=== PATIENT | female | born 1990 | race American Indian/Alaskan Native ===

== ENCOUNTER 2020-10-16 04:43 | Inpatient (IN) | payer OTHER ==
[2020-10-16] MEDS ORDERED: fentaNYL 100 MCG/2 ML INJ IV ONE (04:50)
[2020-10-16] MEDS ORDERED: fentaNYL 100 MCG/2 ML INJ ONE (04:51)
[2020-10-16] MEDS ORDERED: LACTATED RINGERS 1,000 ML ONE (05:07)
[2020-10-16] MEDS ORDERED: MINERAL OIL 30 ML ORAL LIQD ONE (05:35)
[2020-10-16 05:57] LABS: Basophils % (Auto) 0.2 % (0.0-1.8); Eosinophils # (Auto) 0.1 K/mm3 (0.0-0.4); Hematocrit 41.5 % (30.3-42.9); Hemoglobin 13.8 gm/dl (10.1-14.3); Lymphocytes # (Auto) 3.8 K/mm3 (1.2-5.4); Lymphocytes % (Auto) 40.4 % (13.4-35.0); Mean Corpuscular HGB Conc 33 % (30-34); Mean Corpuscular Volume 78 fl (79-97); Monocytes # (Auto) 0.7 K/mm3 (0.0-0.8); Monocytes % (Auto) 7.9 % (0.0-7.3); Red Blood Count 5.31 M/mm3 (3.65-5.03); Red Cell Distribution Width 15.9 % (13.2-15.2)
[2020-10-16 06:06] LABS: Platelet Count 129 K/mm3 (140-440)
--- NOTE | 2020-10-16 06:21 | History and Physical Report ---
History of Present Illness Date of examination: 10/16/20 Date of admission: 10/16/20 04:43 Chief complaint: Intense labor pains and "my water broke around 02:00 this morning". History of present illness: Transfer in to care at 31 3/7 weeks to [facility] from [place]. course complicated by Vitamin D deficiency (on PO Vit D supplements). Of note, patient was started on LDA by previous provider for history of previous miscarriages and continued taking LDA after transfer of care. She is also Varicella non-immune. Past History Past Medical History: migraines, other (chronic sinusitis) Past Surgical History: D&C Family/Genetic History: diabetes (maternal grandmother), hypertension (maternal grandmother), stroke (paternal grandmother) Social history: no significant social history, - Obstetrical History Expected Date of Delivery: 10/14/20 Actual Gestation: 40 Week(s) 2 Day(s) : 4 Para: 1 Hx # Term Pregnancies: 1 Number of Pregnancies: 0 Spontaneous Abortions: 2 Number of Living Children: 1 #1 Gender: Female year: Birthweight: 3.827 kg Method of Delivery: Vaginal Gestational age at delivery: 40 Complications: perineal laceration (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) Medications and Allergies Allergies Allergy/AdvReac Type Severity Reaction Status Date / Time No Known Allergies Allergy Verified 10/16/20 04:52 Home Medications Medication Instructions Recorded Confirmed Last Taken Type Vit-Fe Fumar-FA [ 1 tab PO DAILY 10/16/20 10/16/20 Unknown History Vitamin] Review of Systems All systems: negative - Vital Signs Vital signs: Vital Signs Temp Pulse Resp BP 98.3 F 60 18 151/90 10/16/20 04:43 10/16/20 04:43 10/16/20 04:43 10/16/20 04:43 Temp Pulse Resp BP Pulse Ox 98.3 F 73 18 133/87 98 10/16/20 04:43 10/16/20 06:12 10/16/20 04:43 10/16/20 06:12 10/16/20 06:10 - Physical Exam Breasts: Positive: normal Cardiovascular: Regular rate Lungs: Positive: Clear to auscultation, Normal air movement Abdomen: Positive: normal appearance, soft Genitourinary (Female): Positive: normal external genitalia, normal perenium, other (small dimple noted to posterior introitus where pt reports fistula) Vagina: Positive: normal moisture Uterus: Positive: enlarged Anus/Rectum: Positive: normal perianal skin Extremities: Positive: normal - Obstetrical FHR: category 1 Uterine Contraction Monitor Mode: External Cervical Dilatation: 9 (Leaking a small amount of clear fluid on exam.) Cervical Effacement Percentage: 100 station: +1 Uterine Contraction Frequency (min): 2-3 Uterine Contraction Duration: 60-90 Uterine Contraction Pattern: Regular Uterine Tone Measurement Phase: Resting Uterine Contraction Intensity: Moderate Results Result Diagrams: 10/16/20 05:00 Abnormal lab results 10/16/20 Range/Units 05:00 RBC 5.31 H (3.65-5.03) M/mm3 MCV 78 L (79-97) fl MCH 26 L (28-32) pg RDW 15.9 H (13.2-15.2) % Plt Count 129 L (140-440) K/mm3 Lymph % (Auto) 40.4 H (13.4-35.0) % Alfalfa % (Auto) 7.9 H (0.0-7.3) % All other labs normal. Assessment and Plan A: IUP @ 40 3/7 weeks Category I tracing Active Labor SROM GBS Negative Varicella Non-Immune P: Admit to L&D per routine orders Expectant management Anticipate Needs Varicella vaccine
[2020-10-16] MEDS ORDERED: TERBUTALINE 1 MG/1 ML INJ SUB-Q PRN (06:52)
[2020-10-16] MEDS ORDERED: ePHEDrine SULFATE 50 MG/1 ML INJ IV PRN (06:52)
[2020-10-16] MEDS ORDERED: LIDOCAINE (2%) 20 MG/1 ML VIAL 20 ML MDV INFILTRATI NR (06:52)
[2020-10-16] MEDS ORDERED: OXYTOCIN DRIP 30 UNITS/500 ML BAG IV SCH ×2 (07:00)
[2020-10-16] MEDS ORDERED: LACTATED RINGERS 1,000 ML IV SCH (07:00)
--- NOTE | 2020-10-16 07:52 | Procedure Note ---
OB Delivery Note - Delivery Date of Delivery: 10/16/20 (0717) Surgeon: KATRINA WHITFIELD Estimated blood loss: 200cc - Vaginal Delivery presentation: vertex Delivery position: OA Intrapartum events: none Delivery induction: none Delivery monitor: external FHT, external uterine Route of delivery: Delivery placenta: spontaneous Delivery cord: 3 umbilical vessels Delivery laceration: 1st degree Delivery repair: vicryl Anesthesia: local Delivery comments: of a live 8'7 female infant over a 1st degree perineal laceration under IV pain control with Apgars of 9 and 9 at 0717 on 10/16/2020. Infant directly to maternal abd/chest, skin to skin contact. Spontaneous delivery of placenta complete and intact with Doty side presenting at 0725. Fundus is firm and midline located 4 below the U. Lochia is scant. Delayed cord clamping and cutting; Cord cut by the Father of the Baby. Cord blood collected. Perineal laceration repaired with 2-[address]-1 under local 2% Lidocaine. - A at 1 minute: 9 at 5 minutes: 9 Infant Gender: Female (8'7)
[2020-10-16] MEDS ORDERED: diphenhydrAMINE 25 MG CAP PO PRN (08:00)
[2020-10-16] MEDS ORDERED: WITCH HAZEL/ GLYCERIN PAD TP PRN (08:00)
[2020-10-16] MEDS ORDERED: BENZOCAINE/MENTHOL 20/0.5% TOP SPRAY 56 GM TP PRN (08:00)
[2020-10-16] MEDS ORDERED: HYDROcodone/ACETAMINOPHEN 5-325 MG TAB PO PRN (08:30)
[2020-10-16] MEDS ORDERED: LANOLIN/ZINC/DIMETHICONE (LANSINOH) 7 GM TP PRN (08:30)
[2020-10-16] MEDS: IBUPROFEN 600 MG TAB PO SCH ×3 (12:19→20:05)
[2020-10-16] MEDS: PRENATAL VIT27-FE FUMARATE-FOLIC ACID VIT TAB PO SCH (12:20)
[2020-10-16 16:01] LABS: Hematocrit 36.7 % (30.3-42.9); Hemoglobin 11.9 gm/dl (10.1-14.3)
[2020-10-16] MEDS ORDERED: MINERAL OIL 30 ML ORAL LIQD PO PRN (22:00)
[2020-10-17] MEDS: IBUPROFEN 600 MG TAB PO SCH ×2 (01:50→10:07)
[2020-10-17] MEDS: PRENATAL VIT27-FE FUMARATE-FOLIC ACID VIT TAB PO SCH (10:07)
[2020-10-17 13:17] LABS: Basophils % (Auto) 0.2 % (0.0-1.8); Eosinophils # (Auto) 0.1 K/mm3 (0.0-0.4); Eosinophils % (Auto) 0.7 % (0.0-4.3); Hematocrit 36.7 % (30.3-42.9); Hemoglobin 12.2 gm/dl (10.1-14.3); Lymphocytes # (Auto) 2.6 K/mm3 (1.2-5.4); Lymphocytes % (Auto) 27.3 % (13.4-35.0); Mean Corpuscular HGB Conc 33 % (30-34); Mean Corpuscular Volume 79 fl (79-97); Monocytes # (Auto) 0.8 K/mm3 (0.0-0.8); Monocytes % (Auto) 8.2 % (0.0-7.3); Platelet Count 109 K/mm3 (140-440); Red Blood Count 4.65 M/mm3 (3.65-5.03); Red Cell Distribution Width 15.9 % (13.2-15.2)
[2020-10-17 13:53] LABS: Alanine Aminotransferase 17 units/L (7-56); Albumin 3.4 g/dL (3.9-5); Blood Urea Nitrogen 8 mg/dL (7-17); Calcium 9.2 mg/dL (8.4-10.2); Hemolysis Index 8
[2020-10-17 13:56] LABS: BUN/Creatinine Ratio 16
--- NOTE | 2020-10-17 15:08 | Progress Note ---
Assessment and Plan PPD#1 doing well with thrombocytopenia, asymptomatic and pt desires to go home 1. PIH precaution given 2. Pt to follow up in clinic in 1wk and to call office if she has headache 3. Routine care instruction and all questions encouraged and answered Subjective Date of service: 10/17/20 Principal diagnosis: PPD#1 with thrombocytopenia, asymptomatic Interval history: Pt is breast feeding, denies pelvic pain and same controlled with motrin med and vag bleed less than a period. pt wants to go home. Tolerates diet well and voiding without difficulty. Pt denies headache Objective - Constitutional Vitals: Vital Signs - 12hr 10/17/20 08:33 Temperature 97.6 F Pulse Rate 71 Respiratory 18 Rate Blood Pressure 132/86 O2 Sat by Pulse 96 Oximetry General appearance: Present: no acute distress - Respiratory Respiratory effort: normal - Breasts Breasts: normal - Cardiovascular Rhythm: regular Extremities: no ischemia - Gastrointestinal General gastrointestinal: Present: non-tender - Genitourinary Female genitourinary: other (Uterine fundus firm and 4cm below the umbilicus; right labia with mild swelling, non-tender and sutures intact to laceration repaired at delivery) - Integumentary Integumentary: warm, dry - Musculoskeletal Musculoskeletal: strength equal bilaterally - Neurologic Neurologic: CNII-XII intact - Psychiatric Psychiatric: appropriate mood/affect - Labs CBC & Chem 7: 10/17/20 12:58 10/17/20 12:58 Labs: Abnormal lab results 10/17/20 10/17/20 Range/Units 12:58 12:58 MCH 26 L (28-32) pg RDW 15.9 H (13.2-15.2) % Plt Count 109 L (140-440) K/mm3 [place] % (Auto) 8.2 H (0.0-7.3) % Sodium 135 L (137-145) mmol/L Creatinine 0.5 L (0.6-1.2) mg/dL Alkaline Phosphatase 145 H (35-129) units/L Total Protein 5.9 L (6.3-8.2) g/dL Albumin 3.4 L (3.9-5) g/dL Medications & Allergies - Medications Allergies/Adverse Reactions: Allergies No Known Allergies Allergy (Verified 10/16/20 04:52) Home Medications: Home Medications Medication Instructions Recorded Confirmed Last Taken Type Ibuprofen [Motrin 600 MG tab] 600 mg PO Q6H 21 Days #40 tablet 10/17/20 Unknown Rx Active Medications: Generic Name Dose Route Start Last Admin Trade Name Freq PRN Reason Stop Dose Admin Hydrocodone Bitart/Acetaminophen 2 each 10/16/20 08:30 Hydrocodone/Acetaminophen 5-325 Mg Tab PO Q6H PRN Pain, Moderate (4-6) Benzocaine/Menthol 1 spray 10/16/20 08:00 10/16/20 12:19 Benzocaine/Menthol 20/0.5% Top [place] 56 Gm TP 1 spray PRN PRN Administration Episiotomy Pain Bisacodyl 10 mg 10/16/20 10:00 Bisacodyl 10 Mg Rect Supp NC BID PRN Constipation Diphenhydramine HCl 25 mg 10/16/20 08:00 Diphenhydramine 25 Mg Cap PO Q6H PRN Itching Ibuprofen 600 mg 10/16/20 08:00 10/17/20 10:07 Ibuprofen 600 Mg Tab PO 600 mg Q6H JUSTINA Administration Multi-Ingredient Ointment 1 applic 10/16/20 08:30 10/16/20 12:19 Lanolin/Zinc/Dimethicone (L[place]) 7 Gm TP 1 applic PRN PRN Administration Sore Nipples Multivitamins/Iron/Calcium 1 each 10/16/20 10:00 10/17/20 10:07 [id number]-Sb Fumarate-Folic Acid Vit Tab PO 1 each QDAY JUSTINA Administration Sodium Chloride 10 ml 10/16/20 08:00 Sodium Chloride 0.9% 10 Ml Flush Syringe IV PRN PRN flush [place]/Glycerin 1 each 10/16/20 08:00 10/16/20 12:18 [place]/ Glycerin Pad TP 1 each PRN PRN Administration Hemorrhoid/cleansing/soothing
[2020-10-17 16:36] VITALS: BP 132/78
--- NOTE | 2020-10-17 19:30 | Discharge Summary ---
Providers - Providers Date of Admission: 10/16/20 04:43 Date of discharge: 10/17/20 Attending physician: KOSTA SNYDER Primary care physician: KOSTA SNYDER Hospitalization Reason for admission: active labor Delivery: Episiotomy: none Laceration: 2nd degree Other procedures: none complications: none Discharge diagnosis: IUP at term delivered, other (Thrombocytopenia) [place] baby: female Pertinent studies: platelets 129 predelivery and 109 post delivery Hospital course: Precipitous uncomplicated vaginal delivery with thrombocytopenia asymptomatic pre and post delivery. Pt denies headache and vaginal bleeding with normal lochia. Pt had vaginal fistula delivery that was not repaired and laceration during delivery repaired by CNMW Steph Correia. course uneventful and pt wanted to go home on day one. Peds discharged and pt was discharged home to follow up in office in 1wk for platelet check. Condition at discharge: Good Disposition: DC-01 TO HOME OR SELFCARE Plan - Discharge Medications Prescriptions: Ibuprofen [Motrin 600 MG tab] 600 mg PO Q6H 21 Days #40 tablet - Provider Discharge Summary Additional instructions: [] Smoking cessation referral if applicable(refer to patient education folder for contact #) [] Refer to [facility] Booklet Call your doctor immediately for: * Fever > 100.5 * Heavy vaginal bleeding ( >1 pad per hour) * Severe persistent headache * Shortness of breath * Reddened, hot, painful area to leg or breast * Drainage or odor from incision. * Keep incision clean and dry at all times and follow doctor's instructions regarding bathing/showering - Follow up plan Follow up: SALOME COULTER MD [Staff Physician] - 7 Days KOSTA SNYDER MD [Primary Care Provider] - 7 Days Forms: DC Identification Form
== END 2020-10-17 16:44 | disposition home or self-care (01) | DRG 806 ==
LOC: LD 04:43 → APU 09:24 → OB 09:46
PROVIDERS: ADMIT Obstetrics & Gynecology; ATTEND Obstetrics & Gynecology
PROC: 10E0XZZ Delivery of Products of Conception, External Approach (ICD-10-PCS; principal; 2020-10-16)
PROC: 0HQ9XZZ Repair Perineum Skin, External Approach (ICD-10-PCS; 2020-10-16)
DX: O62.3 Precipitate labor (principal); O99.355 Diseases of the nervous system complicating the puerperium; Z37.0 Single live birth; Z3A.40 40 weeks gestation of pregnancy; G43.909 Migraine, unspecified, not intractable, without status migrainosus; O99.284 Endocrine, nutritional and metabolic diseases complicating childbirth; E55.9 Vitamin D deficiency, unspecified; O70.0 First degree perineal laceration during delivery; O72.3 Postpartum coagulation defects; D69.6 Thrombocytopenia, unspecified; Z20.822 Contact with and (suspected) exposure to COVID-19
CPT/HCPCS: 36415; 80053; 85014; 85018; 85025; 86592; 86706; 86762; 86850; 86900; 86901; 87806; G0378; A6250; J3010; J7120; U0003